=== PATIENT | male | born 1965 | race Caucasian/White ===

== ENCOUNTER 2017-07-17 11:41 | Inpatient (IN) | payer MEDICARE, OTHER ==
[2017-07-17 11:57] VITALS: BP 145/89; PULSE 99; RESP 18; TEMP 98.4; O2SAT 97
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
[2017-07-17 12:17] LABS: AUTOMATED NEUTROPHIL # 5.5 TH/MM3 (1.8-7.7); BASOPHIL # 0.1 TH/MM3 (0-0.2); EOSINOPHIL # 0.3 TH/MM3 (0-0.4); EOSINOPHIL % 3.2 % (0.0-4.0); HEMATOCRIT 44.5 % (39.0-51.0); HEMO FLAGS DIFF FINAL; LYMPH % 25.8 % (9.0-44.0); LYMPHOCYTE # 2.4 TH/MM3 (1.0-4.8); MEAN CORPUSCULAR HEMOGLOBIN 30.4 PG (27.0-34.0); MEAN CORPUSCULAR HGB CONC 34.2 % (32.0-36.0); MONO % 9.4 % (0.0-8.0); NEUT % 60.6 % (16.0-70.0); PLATELET COUNT 303 TH/MM3 (150-450); RED BLOOD COUNT 4.99 MIL/MM3 (4.50-5.90); RED CELL DISTRIBUTION WIDTH 11.5 % (11.6-17.2); WHITE BLOOD COUNT 9.2 TH/MM3 (4.0-11.0)
[2017-07-17 12:26] LABS: POTASSIUM 3.8 MEQ/L (3.5-5.1)
[2017-07-17 12:29] LABS: BICARBONATE 24.3 MEQ/L (21.0-32.0)
--- NOTE | 2017-07-17 12:29 | RADRPT ---
EXAM DATE/TIME: 07/17/2017 12:10 [facility] COMPARISON: No previous studies available for comparison. INDICATIONS : Right upper extremity numbness, now resolved. RADIATION DOSE: 61.51 CTDIvol (mGy) MEDICAL HISTORY : Hypercholesterolemia. Parkinsons. SURGICAL HISTORY : None. ENCOUNTER: Initial ACUITY: 1 day PAIN SCALE: 0/10 LOCATION: cranial TECHNIQUE: Multiple contiguous axial images were obtained of the head. Using automated exposure control and adj ustment of the mA and/or kV according to patient size, radiation dose was kept as low as reasonably a chievable to obtain optimal diagnostic quality images. DICOM format image data is available electro nically for review and comparison. FINDINGS: CEREBRUM: There is a lenticular shaped area of increased density adjacent to the calvarium of the bilateral hig h convexities within the vicinity of the left and right frontal lobes concerning for possible subdura l hematoma. The adjacent sulci appear intact. POSTERIOR FOSSA: The cerebellum and brainstem are intact. The 4th ventricle is midline. The cerebellopontine angle i s unremarkable. EXTRACRANIAL: The visualized portion of the orbits is intact. SKULL: The calvaria is intact. No evidence of skull fracture. CONCLUSION: Abnormal exam. There is a curvilinear area of extra-axial high density fluid collection concerning fo r a subdural hematoma, larger on the left than on the right. Recommend further evaluation with MRI.. Chelsy Mcintosh MD on July 17, 2017 at 12:23 Board Certified Radiologist. This report was verified electronically.
[2017-07-17 12:31] LABS: APTT (PATIENT) 26.6 SEC (24.3-30.1); INTERNATIONAL NORMALIZED RATIO 1.1 RATIO; PROTHROMBIN TIME - PATIENT 12.2 SEC (9.8-11.6)
[2017-07-17 12:46] LABS: BLOOD, URINE NEG (NEG); GLUCOSE,URINE NEG (NEG); KETONE, URINE NEG (NEG); NITRITE,URINE NEG (NEG)
[2017-07-17 12:49] LABS: METHOD OF COLLECTION CLEAN CATCH; URINE COLOR STRAW (YELLW/STRAW)
[2017-07-17 12:50] LABS: COMMENT (UR) CULT NOT INDICATED; CULTURE IF INDICATED CULT NOT INDICATED; WBC, URINE 0-2 /hpf (0-5)
[2017-07-17] MEDS ORDERED: LORazepam 2 MG/ML VIAL IV PUSH ONE (13:15)
[2017-07-17] MEDS ORDERED: SENNOSIDES 8.6 MG TAB PO PRN (13:30)
[2017-07-17] MEDS ORDERED: ONDANSETRON HCL 4 MG/2 ML VIAL IVP PRN (13:30)
[2017-07-17] MEDS ORDERED: NALOXONE HCL 0.4 MG/ML AMP IV PRN (13:30)
[2017-07-17] MEDS ORDERED: LACTULOSE SYRUP 20 GM/30 ML CUP PO PRN (13:30)
[2017-07-17] MEDS ORDERED: BISACODYL 10 MG SUPP RECTAL PRN (13:30)
[2017-07-17] MEDS ORDERED: MAGNESIUM HYDROXIDE SUSP 30 ML CUP PO PRN (13:30)
[2017-07-17] MEDS ORDERED: cloNIDine HCL 0.1 MG TAB PO PRN (13:30)
[2017-07-17] MEDS ORDERED: ENALAPRILAT 1.25 MG/ML VIAL IV PRN (13:30)
[2017-07-17] MEDS ORDERED: SODIUM CHLORIDE 0.9% FLUSH 10 ML FLUSH IV FLUSH PRN (13:30)
--- NOTE | 2017-07-17 14:05 | RADRPT ---
EXAM DATE/TIME: 07/17/2017 13:41 [facility] COMPARISON: No previous studies available for comparison. INDICATIONS : Right sided weakness. MEDICAL HISTORY : Parkinson's. SURGICAL HISTORY : Fusion, lumbar. Bilateral knee ORIF ENCOUNTER: Initial ACUITY: 1 day PAIN SCORE: 5/10 LOCATION: cranial Please note a normal MRA of the brain does not entirely exclude the possibility of a small aneurysm, nor the possibility of distal intracranial vessel disease. TECHNIQUE: 3D time of flight MRA was performed. Source images, multiplanar STS MIP, and 3D volume MIP reconstru ctions were reviewed. FINDINGS: There is excellent visualization of the major intracranial arteries out to the second-order branch ve ssels. There is no evidence for aneurysm, vessel truncation or stenosis, and no evidence for vascula r malformation. There is a tiny hypoplastic A1 segment on the right side. There is a patent right pos terior communicating artery. CONCLUSION: 1. Tiny hypoplastic A1 segment on the right. 2. Patent right posterior communicating artery. 3. Otherwise unremarkable study. Pepe Rose MD on July 17, 2017 at 14:00 Board Certified Radiologist. This report was verified electronically.
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
--- NOTE | 2017-07-17 14:16 | RADRPT ---
EXAM DATE/TIME: 07/17/2017 13:41 [facility] COMPARISON: CT BRAIN W/O CONTRAST, July 17, 2017, 12:10. INDICATIONS : Right sided weakness. MEDICAL HISTORY : None. SURGICAL HISTORY : Fusion, lumbar. Bilateral knee ORIF. ENCOUNTER: Initial ACUITY: 1 day PAIN SCORE: 4/10 LOCATION: TECHNIQUE: Multiplanar, multisequence MRI of the brain was performed without contrast. FINDINGS: CEREBRUM: The ventricles are normal for age. No evidence of midline shift, mass lesion, or acute infarction. The pituitary gland and suprasellar cistern are normal in configuration. There appear to be small sukumar ateral subacute subdural collections along the vertex. There is approximately 8 mm of separation on t he left side. There is approximately 6 mm of separation in the right side. WHITE MATTER: No significant signal abnormalities are seen in the white matter. POSTERIOR FOSSA: The cerebellum and brainstem are intact. The 4th ventricle is midline. The cerebellopontine angle is unremarkable. The cerebellar tonsils are normal in position. DIFFUSION IMAGING: No focal areas of restricted diffusion are seen. No evidence of acute infarction. EXTRACRANIAL: The visualized portions of the orbits and paranasal sinuses are unremarkable. CONCLUSION: Small bilateral subacute subdural hematomas high along the cerebral cortex bilaterally. There is appr oximately 6 mm of separation the right side and 8 mm of separation the left side. No significant mass effect or midline shift is demonstrated. Pepe Rose MD on July 17, 2017 at 14:07 Board Certified Radiologist. This report was verified electronically.
[2017-07-17] MEDS ORDERED: CITA40TA4 PO (14:34)
[2017-07-17] MEDS ORDERED: SINE10100 PO ×2 (14:34→14:48)
[2017-07-17] MEDS ORDERED: SINE25TA PO (14:34)
[2017-07-17] MEDS ORDERED: sinemet PO ×2 (14:34→14:37)
[2017-07-17] MEDS ORDERED: CLON0.5T PO (14:34)
[2017-07-17] MEDS ORDERED: TAMS0.4C4 PO (14:34)
[2017-07-17] MEDS ORDERED: IBUP-232 PO (14:34)
[2017-07-17 14:43] VITALS: O2SAT 97
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
[2017-07-17] MEDS ORDERED: TERA5CAP3 PO (14:49)
[2017-07-17] MEDS: SODIUM CHLOR 0.9% 1000 ML INJ 1,000 ML IV SCH ×2 (15:06→21:46)
[2017-07-17] MEDS ORDERED: CARBIDOPA/LEVODOPA 10 MG/100 MG TAB PO STA (15:08)
[2017-07-17 15:10] VITALS: BP 135/74; PULSE 93; RESP 18; O2SAT 95
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
[2017-07-17] MEDS: ACETAMINOPHEN 325 MG TAB PO PRN (16:26)
[2017-07-17] MEDS ORDERED: CARBIDOPA/LEVODOPA 10 MG/100 MG TAB PO SCH (17:00)
[2017-07-17 17:45] VITALS: BP 136/64; PULSE 94; RESP 18; O2SAT 95
[2017-07-17] MEDS: CARBIDOPA/LEVODOPA 10 MG/100 MG TAB PO SCH (18:18)
[2017-07-17 20:45] VITALS: BP 121/78; PULSE 80; RESP 18; TEMP 98; O2SAT 94
[2017-07-17] MEDS ORDERED: TAMSULOSIN HCL 0.4 MG CAP PO SCH (21:00)
[2017-07-17] MEDS: TERAZOSIN HCL 5 MG CAP PO SCH (21:45)
[2017-07-17] MEDS: clonazePAM 0.5 MG TAB PO SCH (21:45)
[2017-07-17] MEDS: DOCUSATE SODIUM 50 MG/SENNA 8.6 MG TAB PO SCH (21:45)
[2017-07-17] MEDS: LEVODOPA/CARBIDOPA 1 TAB TABCR PO SCH (21:45)
[2017-07-17] MEDS: SODIUM CHLORIDE 0.9% FLUSH 10 ML FLUSH IV FLUSH SCH (21:45)
[2017-07-18] VITALS (7 sets, daily range): BP systolic 108–133; BP diastolic 59–83; PULSE 67–90; RESP 17–20; TEMP 97.5–98; O2SAT 93–96
[2017-07-18] MEDS: ACETAMINOPHEN 325 MG TAB PO PRN ×2 (03:27→21:08)
[2017-07-18] MEDS: clonazePAM 0.5 MG TAB PO SCH ×2 (08:28→21:07)
[2017-07-18] MEDS: CARBIDOPA/LEVODOPA 10 MG/100 MG TAB PO SCH ×4 (08:29→18:02)
[2017-07-18] MEDS: CITALOPRAM HYDROBROMIDE 40 MG TAB PO SCH (08:29)
[2017-07-18] MEDS: DOCUSATE SODIUM 50 MG/SENNA 8.6 MG TAB PO SCH ×2 (08:29→21:07)
[2017-07-18] MEDS: SODIUM CHLORIDE 0.9% FLUSH 10 ML FLUSH IV FLUSH SCH ×2 (08:30→21:00)
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
--- NOTE | 2017-07-18 15:28 | EKG ---
Date Performed: 07/17/2017 Time Performed: 11:46:15 PTAGE: 52 years EKG: SINUS TACHYCARDIA When compared to previous tracing, sinus rate is faster. ABNORMAL RHYTHM ECG PREVIOUS TRACING : 04/16/2003 10.15 DOCTOR: Jony Brito Interpretating Date/Time 07/18/2017 15:28:00
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
[2017-07-18] MEDS: SODIUM CHLOR 0.9% 1000 ML INJ 1,000 ML IV SCH (18:04)
--- NOTE | 2017-07-18 20:13 | ECHRPT ---
Indication: CVA/ TIA CONCLUSIONS Wall thickness is normal. The left ventricular systolic function is normal with an estimated ejection fraction in the range of 60-65%. Left ventricular diastolic function parameters are normal. Normal left ventricular size. The left atrial size is upper limits of normal. The right atrial size is [id number]-hn-pptetjajdk dilated. BP: 131 / 83 HR: 78 Rhythm: Sinus MEASUREMENTS (Male / Female) Normal Values Technical Quality:Fair 2D ECHO LV Diastolic Diameter PLAX 4.8 cm 4.2 - 5.9 / 3.9 - 5.3 cm LV Systolic Diameter PLAX 3.4 cm IVS Diastolic Thickness 0.8 cm 0.6 - 1.0 / 0.6 - 0.9 cm LVPW Diastolic Thickness 0.9 cm 0.6 - 1.0 / 0.6 - 0.9 cm LV Relative Wall Thickness 0.4 LVOT Diameter 2.1 cm Aortic Root Diameter 3.0 cm LA Systolic Diameter LX 3.9 cm 3.0 - 4.0 / 2.7 - 3.8 cm M-MODE AV Cusp Separation MM 2.5 cm DOPPLER AV Peak Velocity 141.0 cm/s AV Peak Gradient 8.0 mmHg AV Mean Gradient 4.0 mmHg AV Velocity Time Integral 25.2 cm LVOT Peak Velocity 97.8 cm/s LVOT Peak Gradient 3.8 mmHg LVOT Velocity Time Integral 18.2 cm LVOT Cardiac Index 2174.2 cm/minm AV Area Cont Eq vti 2.5 cm AV Area Cont Eq pk 2.4 cm Mitral E Point Velocity 81.9 cm/s Mitral A Point Velocity 54.8 cm/s Mitral E to A Ratio 1.5 LV E' Lateral Velocity 9.8 cm/s Mitral E to LV E' Lateral Ratio 8.3 LV E' Septal Velocity 10.2 cm/s Mitral E to LV E' Septal Ratio 8.0 PV Peak Velocity 79.7 cm/s PV Peak Gradient 2.5 mmHg FINDINGS RIGHT VENTRICLE Normal right ventricular size and systolic function. LEFT ATRIUM The left atrial size is upper limits of normal. RIGHT ATRIUM The right atrial size is tcem-yw-iysrrwarig dilated. ATRIAL SEPTUM The interatrial septum not well visualized. AORTA The aortic root and proximal ascending aorta are not well visualized. MITRAL VALVE Structurally normal mitral valve. No mitral valve stenosis or regurgitation. AORTIC VALVE Trileaflet aortic valve. No aortic valve stenosis or regurgitation. TRICUSPID VALVE Structurally normal tricuspid valve. No tricuspid regurgitation. PULMONARY VALVE No pulmonary valve regurgitation or stenosis. VESSELS The inferior vena cava was not well visualized. PERICARDIUM No pericardial effusion. Jatin Pedraza MD, FACC (Electronically Signed) Final Date:18 July 2017 20:12
[2017-07-18] MEDS: TERAZOSIN HCL 5 MG CAP PO SCH (21:16)
[2017-07-18] MEDS: LEVODOPA/CARBIDOPA 1 TAB TABCR PO SCH (21:16)
[2017-07-19] VITALS (10 sets, daily range): BP systolic 111–133; BP diastolic 56–74; PULSE 67–83; RESP 16–20; TEMP 97.2–98.2; O2SAT 95–96
[2017-07-19] MEDS: ACETAMINOPHEN 325 MG TAB PO PRN ×3 (06:23→20:33)
[2017-07-19] MEDS: SODIUM CHLOR 0.9% 1000 ML INJ 1,000 ML IV SCH ×2 (06:52→21:10)
[2017-07-19] MEDS: SODIUM CHLORIDE 0.9% FLUSH 10 ML FLUSH IV FLUSH SCH ×2 (09:00→20:10)
[2017-07-19] MEDS: CARBIDOPA/LEVODOPA 10 MG/100 MG TAB PO SCH ×5 (09:16→20:08)
[2017-07-19] MEDS: clonazePAM 0.5 MG TAB PO SCH ×2 (09:16→20:09)
[2017-07-19] MEDS: CITALOPRAM HYDROBROMIDE 40 MG TAB PO SCH (09:16)
[2017-07-19] MEDS: DOCUSATE SODIUM 50 MG/SENNA 8.6 MG TAB PO SCH ×2 (09:16→20:05)
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
[2017-07-19] MEDS: levETIRAcetam 500 MG TAB PO SCH (20:04)
[2017-07-19] MEDS: TERAZOSIN HCL 5 MG CAP PO SCH (20:05)
[2017-07-19] MEDS ORDERED: PILL SPLITTER OTHER PRN (20:30)
[2017-07-19] MEDS: LEVODOPA/CARBIDOPA 1 TAB TABCR PO SCH (20:35)
--- NOTE | 2017-07-19 21:18 | HHI.PR ---
Review/Management Daily Summary 07/19 had another spell right arm parsthesias exam stable around 5 pm neuro exam eeg results seen discussed with dr Otero agree with saleem, possible seizures repeat ct tomorrow Subjective Subjective Comments No acute events reported but another brief right arm tingling No headache Active Medications Current Medications Medications (Trade) Dose Ordered Sig/Emmie Route Start Time Stop Time Status Last Admin Sodium Chloride 1,000 ml @ 70 mls/hr [id number] IV 07/17/17 13:00 07/18/17 18:04 (NS Flush) 2 ml UNSCH PRN IV FLUSH 07/17/17 13:30 (NS Flush) 2 ml BID IV FLUSH 07/17/17 21:00 07/19/17 20:10 (Tylenol) 650 mg Q4H PRN PO 07/17/17 13:30 07/19/17 20:33 (Zofran Inj) 4 mg Q6H PRN IVP 07/17/17 13:30 (Tylenol) 650 mg Q6H PRN PO 07/17/17 13:30 07/19/17 15:09 (Narcan Inj) 0.4 mg UNSCH PRN IV 07/17/17 13:30 (Mayte-Colace) 1 tab BID PO 07/17/17 21:00 07/19/17 20:05 (Milk Of Magnesia Liq) 30 ml Q12H PRN PO 07/17/17 13:30 (Senokot) 17.2 mg Q12H PRN PO 07/17/17 13:30 (Dulcolax Supp) 10 mg DAILY PRN RECTAL 07/17/17 13:30 (Lactulose Liq) 30 ml DAILY PRN PO 07/17/17 13:30 (Vasotec Inj) 1.25 mg Q6H PRN IV 07/17/17 13:30 (Catapres) 0.1 mg Q6H PRN PO 07/17/17 13:30 (Sinemet Cr 50-200 Mg) 1.5 tab HS PO 07/17/17 21:00 07/19/17 20:35 (CeleXA) 40 mg DAILY PO 07/18/17 09:00 07/19/17 09:16 (KlonoPIN) 0.5 mg BID PO 07/17/17 21:00 07/19/17 20:09 (Hytrin) 5 mg HS PO 07/17/17 21:00 07/19/17 20:05 (Sinemet 10-100 Mg) 2 tab 0900,1200,1500,1800 PO 07/17/17 18:00 07/19/17 17:59 (Keppra) 500 mg Q12HR PO 07/19/17 21:00 07/19/17 20:04 (Pill Splitter) 1 ea UNSCH PRN OTHER 07/19/17 20:30 Allergies Allergies Coded Allergies morphine (Verified Allergy, Unknown, 07/17/17) Exam I&O / VS 07/19/17 07/19/17 07/20/17 15:00 23:00 07:00 Intake Total 480 ml Balance 480 ml Intake Oral 480 ml IV Total 0 ml # Voids 5 # Bowel Movements 2 Vital Signs Date Time Temp Pulse Resp B/P (MAP) Pulse Ox O2 Delivery O2 Flow Rate FiO2 07/19/17 20:29 97.7 82 16 115/70 (85) 96 07/19/17 17:46 96 21 07/19/17 17:42 07/19/17 16:10 97.2 81 18 133/74 (93) 96 07/19/17 15:22 68 07/19/17 13:42 07/19/17 12:03 97.9 83 20 118/67 (84) 95 07/19/17 11:18 68 07/19/17 11:16 07/19/17 08:06 97.7 67 20 120/73 (89) 95 07/19/17 05:40 97.7 78 20 111/56 (74) 95 07/19/17 01:06 98.2 72 20 117/67 (84) 95 07/18/17 22:45 18 Objective Micro and Labs Vital Signs Date Time Temp Pulse Resp B/P (MAP) Pulse Ox O2 Delivery O2 Flow Rate FiO2 07/19/17 20:29 97.7 82 16 115/70 (85) 96 07/19/17 17:46 96 21 07/19/17 17:42 07/19/17 16:10 97.2 81 18 133/74 (93) 96 07/19/17 15:22 68 07/19/17 13:42 07/19/17 12:03 97.9 83 20 118/67 (84) 95 07/19/17 11:18 68 07/19/17 11:16 07/19/17 08:06 97.7 67 20 120/73 (89) 95 07/19/17 05:40 97.7 78 20 111/56 (74) 95 07/19/17 01:06 98.2 72 20 117/67 (84) 95 07/18/17 22:45 18 Louise Guaman MD Jul 19, 2017 21:18
[2017-07-20 01:27] VITALS: BP 125/70; PULSE 69; RESP 16; TEMP 97.6; O2SAT 93
[2017-07-20 05:19] VITALS: BP 122/67; PULSE 71; RESP 16; TEMP 97.9; O2SAT 95
[2017-07-20 08:21] VITALS: BP 119/69; PULSE 74; RESP 20; TEMP 97.5; O2SAT 95
[2017-07-20] MEDS: levETIRAcetam 500 MG TAB PO SCH (08:44)
[2017-07-20] MEDS: clonazePAM 0.5 MG TAB PO SCH (08:44)
[2017-07-20] MEDS: DOCUSATE SODIUM 50 MG/SENNA 8.6 MG TAB PO SCH (08:44)
[2017-07-20] MEDS: CITALOPRAM HYDROBROMIDE 40 MG TAB PO SCH (08:44)
[2017-07-20] MEDS: CARBIDOPA/LEVODOPA 10 MG/100 MG TAB PO SCH ×3 (08:48→15:04)
[2017-07-20] MEDS: SODIUM CHLORIDE 0.9% FLUSH 10 ML FLUSH IV FLUSH SCH (09:00)
--- NOTE | 2017-07-20 09:31 | RADRPT ---
EXAM DATE/TIME: 07/20/2017 09:00 [facility] COMPARISON: MRI BRAIN W/O CONTRAST, July 17, 2017, 13:41. CT BRAIN W/O CONTRAST, July 17, 2017, 12:10. INDICATIONS : Follow up subdural hematoma. RADIATION DOSE: 56.35 CTDIvol (mGy) MEDICAL HISTORY : None SURGICAL HISTORY : None. ENCOUNTER: Subsequent ACUITY: 3 days PAIN SCALE: 4/10 LOCATION: Bilateral cranial TECHNIQUE: Multiple contiguous axial images were obtained of the head. Using automated exposure control and adj ustment of the mA and/or kV according to patient size, radiation dose was kept as low as reasonably a chievable to obtain optimal diagnostic quality images. DICOM format image data is available electro nically for review and comparison. FINDINGS: Subacute bilateral subdural hematomas are stable. Both are high near the vertex overlying the frontop arietal regions. On the right this measures 8 mm and on the left 8 mm at its maximum thickness. No ma ss effect or midline shift. Brain parenchyma shows normal attenuation with the exception of chronic l acunar infarctions involving the left basal ganglia. Ventricles are normal in size. Chronic mucosal t hickening involving ethmoid air cells bilaterally and right maxillary sinus. CONCLUSION: 1. Stable subacute bilateral subdural hematomas without mass effect. Ashu Cooper Jr., MD on July 20, 2017 at 9:18 Board Certified Radiologist. This report was verified electronically.
[2017-07-20] MEDS: ACETAMINOPHEN 325 MG TAB PO PRN ×2 (11:01→12:07)
[2017-07-20] MEDS: SODIUM CHLOR 0.9% 1000 ML INJ 1,000 ML IV SCH (11:28)
[2017-07-20 11:49] VITALS: PULSE 65
[2017-07-20 12:00] VITALS: BP 118/68; PULSE 87; RESP 16; TEMP 97.7; O2SAT 95
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
[2017-07-20 12:42] VITALS: O2SAT 94
[2017-07-20] MEDS ORDERED: LEVE500 PO (13:34)
[2017-07-20] MEDS ORDERED: TRAM50TA PO (14:04)
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
== END 2017-07-20 15:31 | disposition home or self-care (01) | DRG 87 ==
LOC: PHED 11:41 → PHEDA 13:35 → N05B 20:42 → OBSVTOIN 07-18 10:25
PROVIDERS: ADMIT Specialist; ATTEND Specialist
DX: S06.5X0A Traumatic subdural hemorrhage without loss of consciousness, initial encounter (principal); G20 Parkinson's disease; N40.0 Benign prostatic hyperplasia without lower urinary tract symptoms; F41.9 Anxiety disorder, unspecified; F32.9 Major depressive disorder, single episode, unspecified; E78.5 Hyperlipidemia, unspecified; M51.36 Other intervertebral disc degeneration, lumbar region; M17.12 Unilateral primary osteoarthritis, left knee; V19.9XXA Pedal cyclist (driver) (passenger) injured in unspecified traffic accident, initial encounter; Y93.55 Activity, bike riding
CPT/HCPCS: 70450; 70544; 70551; 80048; 81001; 85025; 85610; 85730; 93005; 93306; 93880; 95819; 96374; G8987-GO; G8988-GO; G8989-GO; J2060; J7030